=== PATIENT | male | born 1950 | race Caucasian/White ===

== ENCOUNTER → 2016-11-17 | Outpatient (CLI) | payer OTHER, MEDICARE ==
--- NOTE | 2016-11-19 08:50 | MR ---
MRI Left Knee Without Contrast History: Left knee pain continued after hiking injury. Technique: MRI was performed of the left knee using a 3 [employer] MRI system. Sagittal, coronal, and axia l imaging was obtained with standard imaging sequences. Findings: General: There is a mild suprapatellar joint effusion. There is a mildly thickened medial suprapatell ar plica. A 6 mm lobulated lesion is seen in the distal femoral metaphysis compatible with a benign e nchondroma. Ligaments and tendons: There is attenuation of the anterior cruciate ligament and poor visualization proximally suggesting a complete tear. Posterior cruciate ligament is intact. Medial collateral ligam ent is unremarkable. Mild edema is seen at the distal pes anserinus. Focal fluid collection is seen a long the medial margin of the distal semimembranosus tendon which could represent a ganglion measurin g 2.2 cm. Iliotibial band, fibular collateral ligament, and biceps femoris are unremarkable. The popl iteus muscle and tendon are intact. Menisci and cartilage: There is a bucket-handle tear of the medial meniscus with a displaced portion in the intercondylar notch. There is abnormal signal intensity in the posterior horn and body extendi ng to the inferior articular surface. There also appears to be a horizontal tear in the remaining ant erior horn. There is cartilage signal abnormality and fissuring in the posterior weightbearing portio n of the medial femoral condyle. There is reactive subarticular bone marrow edema versus bone contusi on. There is diminutive appearance to the posterior horn lateral meniscus near the meniscal root and a di splaced meniscal fragment superior to the meniscal root measuring 15 x 4 mm. There also appears to be undersurface tear in the remaining posterior horn and body. Cartilage signal abnormality and thinnin g with fissuring are seen in the posterior weightbearing portion of the lateral compartment. There is mild reactive subcortical cystic change in the posterior lateral tibial plateau. Mild cartilage sign al abnormality is seen in the patella and trochlear groove. There is mild abnormal signal intensity i n the distal quadriceps tendon and proximal patellar tendon without attenuation. Mild edema is seen i n the subcutaneous fat anterior to the patellar tendon. Impression: 1. Complete tear of the proximal anterior cruciate ligament. 2. Bucket handle tear of the medial meniscus displaced into the intercondylar notch with tear in the remaining medial meniscus. Grade 2 articular cartilage disease with fissuring in the posterior weight bearing portion of the medial femoral condyle. 3. Evidence of tear in the posterior horn lateral meniscus with a displaced meniscal fragment superio r to the meniscal root. Grade 1 and early grade 2 articular cartilage disease posterior weightbearing portion of lateral compartment. 4. Grade 1 chondromalacia patellofemoral compartment. Mild tendinopathy distal quadriceps tendon and proximal patellar tendon. 5. Mild suprapatellar joint effusion. Mildly thickened medial suprapatellar plica. Ganglion or atypic al Buckner cyst along the semimembranosus tendon. e:sfg
== END ==
LOC: FIMAGING 12:31
PROVIDERS: ATTEND Orthopaedic Surgery
DX: S83.512A Sprain of anterior cruciate ligament of left knee, initial encounter (principal); S83.212A Bucket-handle tear of medial meniscus, current injury, left knee, initial encounter; M22.42 Chondromalacia patellae, left knee; M77.9 Enthesopathy, unspecified; M25.462 Effusion, left knee; M71.22 Synovial cyst of popliteal space [Baker], left knee; Y93.01 Activity, walking, marching and hiking

== ENCOUNTER 2017-01-28 06:18 | Day surgery (SDC) | payer OTHER, MEDICARE ==
[2017-01-28] MEDS ORDERED: LIDOCAINE 1% 2 ML INJ ONE (06:39)
[2017-01-28] MEDS ORDERED: LIDOCAINE 1% 5 ML SDV ID PRN (07:23)
[2017-01-28] MEDS ORDERED: LR 1,000 ML IV ONE (07:23)
[2017-01-28] MEDS ORDERED: BUPIVACAINE/EPI 0.5% 30 ML SDV ONE (07:51)
[2017-01-28] MEDS ORDERED: MIDAZOLAM 2 MG/2 ML VIAL ONE (08:10)
[2017-01-28] MEDS ORDERED: LIDOCAINE 2% 5 ML SDV ONE (08:26)
[2017-01-28] MEDS ORDERED: PROPOFOL 200 MG/20 ML VIAL ONE (08:27)
[2017-01-28] MEDS ORDERED: fentaNYL 100 MCG/2 ML INJ ONE ×5 (08:27→11:38)
[2017-01-28] MEDS ORDERED: DEXAMETHASONE 4 MG/ML VIAL ONE ×2 (08:38)
[2017-01-28] MEDS ORDERED: epHEDrine SULFATE 10 MG/ML SYR ONE (08:55)
[2017-01-28] MEDS ORDERED: KETOROLAC 30 MG/1 ML SDV ONE (10:39)
[2017-01-28] MEDS ORDERED: ceFAZolin 1 GM VIAL ONE (10:41)
--- NOTE | 2017-01-28 12:10 | GOP ---
[f rep st] OPERATIVE REPORT DATE OF OPERATION: 01/28/2017 SURGEON: Constantin Bergeron MD MARITIME OFFICER: Alana Barcenas P.A.-C. ANESTHESIA: General. PREOPERATIVE DIAGNOSIS: 1. Anterior cruciate ligament deficient left knee. 2. Associated medial and lateral meniscal pathology. POSTOPERATIVE DIAGNOSIS: 1. Anterior cruciate ligament deficient left knee. 2. Associated medial and lateral meniscal pathology. 3. Focal area of patellofemoral chondromalacia. PROCEDURE PERFORMED: 1. Focal patellofemoral chondroplasty resecting unstable components of grade 3 change on the retropatellar chondral surface. 2. Partial medial and lateral meniscectomy. 3. Anterior cruciate ligament reconstruction using bone patellar-tendon bone allograft. FINDINGS: ESTIMATED BLOOD LOSS: 5 mL. INDICATIONS: This patient is a 66-year-old male who has had symptomatic ACL deficiency and now has meniscal pathology. He is admitted for operative treatment. DESCRIPTION OF PROCEDURE: After the induction of a general anesthetic, the patient was placed on the operating room table in the supine position. His left knee, calf and thigh were prepped and draped in the usual fashion. Standard arthroscopic portals were utilized. The scope was then reduced to the medial portal and the knee examined. There was diffuse reactive synovitis. The patellofemoral compartment showed a focal area of grade 3 retropatellar chondral change. It was very focal in nature and superficial. It was minimally debrided with a rotary debrider. The scope was passed into the intercondylar notch where there was evidence of a locked bucket handle tear of the medial meniscus associated with chronic ACL deficiency. The meniscal fragment was damaged beyond the point of repair. It was detached posteriorly and then at its axilla medially. The fragment was removed. The resection margins were smoothed back to a nicely tapered configuration. There was some articular surface damage in the medial femoral articular surface , but there were no unstable components. The lateral compartment was inspected. There was a large flap tear of the posterior horn of the lateral meniscus flipped up into the posterior recess. It was detached at its posterior horn attachment point and then removed. The rim was trimmed up until there was a nice smooth margin. Approximately 50% of the medial meniscus was removed and 40% of the lateral meniscus. The articular surfaces of the medial and lateral compartments were in excellent condition. At this point, the ACL remnant was resected and a notchplasty performed in the usual fashion. While the notchplasty was being touched up, the assistant boys track coach was working on the BTB allograft. The final configuration of the graft was a 10 mm wide graft with a 9 x 20 mm bone block proximally and a 10 x 20 bone block distally. The leg was exsanguinated and an incision made over the anteromedial tibial plateau. Dissection was carried down to the anteromedial tibial cortex. The anterior tibial guide was placed and a guide pin passed to the intercondylar region of the tibia at the anatomic footprint of the ACL. This was over drilled to a diameter of 10 mm. Through the medial portal, a point was selected in the intercondylar notch which appeared to be a nice symmetric point. It was placed in the midportion of the footprint of the ACL attachment on the femoral side. This guide pin was passed through the femur exiting the anterolateral cortex of the femur and thigh. This was over drilled to a diameter of 9 mm and a depth of 25 mm, creating a blind tunnel in the distal femur for placement of the femoral bone block. Debris was evacuated from the knee before the guide pin was used to pull the graft into place. The graft was seated with the cancellous surface of the femoral bone block oriented anteriorly. It was fixed with a 7 x 20 mm fully threaded titanium cannulated screw with excellent purchase. The knee was put through a range of motion. There was no evidence of impingement of the graft. It was then fixed with a second 7 x 20 mm titanium fully threaded cannulated interference screw on the tibial side, again with excellent purchase. At this point, a Cecelia's maneuver was performed, which was notably negative. The wounds were then irrigated in preparation for closure. The deep fascia was reapproximated with 2-0 Vicryl before the subcutaneous layer was reapproximated with 4-0 Vicryl and the skin closed in a running subcuticular fashion with 5-0 Vicryl. Five 0 Vicryl was also used to close the portals. A sterile compressive dressing was applied. The patient was awakened from his anesthetic. There were no intraoperative complications. COMPLICATIONS: None. /[id number]/MODL MTDD
[2017-01-28] MEDS ORDERED: HYDROCODONE/APAP 5/325 TAB ONE (12:16)
== END 2017-01-28 15:28 | disposition home or self-care (01) ==
LOC: FSGY 06:18
PROVIDERS: ATTEND Orthopaedic Surgery
DX: M23.612 Other spontaneous disruption of anterior cruciate ligament of left knee (principal); M23.352 Other meniscus derangements, posterior horn of lateral meniscus, left knee; M23.332 Other meniscus derangements, other medial meniscus, left knee; I10 Essential (primary) hypertension; K21.9 Gastro-esophageal reflux disease without esophagitis
CPT/HCPCS: C1713; C1762; J0690; J1100; J1885; J2250; J2704; J3010